=== PATIENT | female | born 1980 | race Caucasian/White ===

== ENCOUNTER 2019-04-20 09:51 | Emergency (ER) | payer OTHER, MEDICAID ==
[~2019-04-20] VITALS: Ht 149.9 cm; Wt 66.2 kg
[~2019-04-20 09:51] MED LIST: AMOXICILLIN 50500 M1 PO; AZITHROMYCIN 2250 MG PO; IBUPROFEN 800800 MG PO; LIDOCAINE VISC100 ML PO; NOHOMEMEDICATIONS; PHENERGAN 25 MG25 MG PO
[2019-04-20 09:55] VITALS: BP 127/88
[2019-04-20] MEDS ORDERED: MUPIROCIN22 GM TOP ×2 (10:26→10:31)
== END 2019-04-20 10:41 | disposition home or self-care (01) ==
LOC: M.ERS 09:51
DX: L25.9 Unspecified contact dermatitis, unspecified cause (principal); H57.12 Ocular pain, left eye; L73.2 Hidradenitis suppurativa; F17.200 Nicotine dependence, unspecified, uncomplicated; Z90.49 Acquired absence of other specified parts of digestive tract; Z98.890 Other specified postprocedural states; Z88.1 Allergy status to other antibiotic agents